=== PATIENT | male | born 1990 | race American Indian/Alaskan Native ===

== ENCOUNTER 2019-11-30 19:54 | Emergency (ER) | payer SELFPAY | END 2019-11-30 20:05 | disposition left against medical advice (07) | LOC: ED 19:54 | DX: N48.89 Other specified disorders of penis (principal); R30.0 Dysuria; R10.30 Lower abdominal pain, unspecified; Z53.21 Procedure and treatment not carried out due to patient leaving prior to being seen by health care provider ==